=== PATIENT | male | born 2000 | race Hispanic/Latino ===

== ENCOUNTER 2019-08-03 16:07 | Emergency (ER) | payer OTHER ==
[~2019-08-03] VITALS: Ht 172.7 cm; Wt 63.6 kg
[2019-08-03] MEDS ORDERED: TYLENOL (16:13)
[2019-08-03] MEDS ORDERED: KETOROLAC 60 MG/2 ML VIAL (J1885) IM ONE (19:15)
[2019-08-03] MEDS ORDERED: predniSONE 50 MG TAB PO ONE (19:15)
[2019-08-03] MEDS ORDERED: CLINDAMYCIN 150 MG CAP PO ONE (19:15)
[2019-08-03] MEDS ORDERED: ACETAMINOPHEN 325 MG TAB PO ONE (19:15)
[2019-08-03] MEDS ORDERED: PRED10TA2 PO (19:20)
[2019-08-03] MEDS ORDERED: CLEO300C2 PO (19:20)
[2019-08-03 19:39] VITALS: BP 119/67
== END 2019-08-03 19:58 | disposition home or self-care (01) ==
LOC: M ED 16:07
DX: J03.90 Acute tonsillitis, unspecified (principal)
CPT/HCPCS: 96372; 99283; J1885

== ENCOUNTER 2019-08-26 14:00 | Inpatient (IN) | payer OTHER ==
[~2019-08-26] VITALS: Ht 172.7 cm; Wt 61.7 kg
[~2019-08-26 14:00] MED LIST: CLEO300C2 PO; PRED10TA2 PO; TYLENOL
[2019-08-26 15:22] LABS: BASO % 0.3 % (0.0-1.0); EOS % 0.4 % (0.0-3.0); HEMATOCRIT 44.8 % (42.0-52.0); LYMPH # 1.2 10^3/uL (1.5-5.0); LYMPH % 11.8 % (24.0-44.0); MEAN CORPUSCULAR HEMOGLOBIN 30.6 pg (27.0-33.0); MEAN CORPUSCULAR HGB CONC 33.5 g/dl (32.0-36.5); MEAN CORPUSCULAR VOLUME 91.4 fl (80.0-96.0); MONO # 0.9 10^3/uL (0.0-0.8); MONO % 8.6 % (0.0-5.0); NEUTROPHILS # 7.8 10^3/uL (1.5-8.5); NEUTROPHILS % 78.6 % (36.0-66.0); PLATELET COUNT, AUTOMATED 182 10^3/uL (150-450); WHITE BLOOD COUNT 9.9 10^3/uL (4.0-10.0)
[2019-08-26] MEDS ORDERED: dexameTHASONE 4 MG/ML 1ML VIAL (J1100) As Ordered ONE (15:38)
[2019-08-26] MEDS ORDERED: ISOVUE-370 76% 100ML VIAL (Q9967) As Ordered ONE (15:38)
[2019-08-26] MEDS ORDERED: dexameTHASONE 20 MG/5 ML VIAL (J1100) IV ONE (15:45)
--- NOTE | 2019-08-26 16:02 | REP ---
CT neck soft tissues: 08/26/2019. Indication: Dysphasia. Sore throat. Comparison: None. Technique: Axial images of the neck soft tissues were obtained following IV administration of 75 ml Isovue 370. Impression: There is a 1.6 x 2.6 x 1.3 cm focus of low attenuation within the right tonsillar pillar with moderate enlargement and mild hyperemia of the right greater than left palatine and nasal pharyngeal tonsils. Borderline prominent lymph nodes are present bilaterally which are likely reactive. The submandibular, parotid and thyroid glands are unremarkable. No significant ocular, intraorbital or intracranial abnormalities are detected. The airway is patent. No significant vascular abnormalities are detected. The visualized lungs are clear. Impression: Right tonsillar/peritonsillar abscess as described. The airway is patent. Electronically Signed by Marvin Haskins DO 08/26/2019 03:54 P
[2019-08-26] MEDS ORDERED: KETOROLAC 30 MG/ML VIAL (J1885) IV ONE (16:30)
[2019-08-26] MEDS ORDERED: NS 1,000 ML IV ONE (16:30)
[2019-08-26] MEDS ORDERED: CLINDAMYCIN 900 MG in IV 1 EA IV ONE (16:30)
[2019-08-26] MEDS: HEPARIN SOD (PORCINE) 5000 UNITS/ML VIAL SC SCH (18:00)
--- NOTE | 2019-08-26 18:06 | HPEPDOC ---
General Date of Admission 08/26/19 Date of Service: Aug 26, 2019 Chief Complaint The patient is a 19-year-old male admitted with a reason for visit of Sore Throat. Source: Patient Exam Limitations: No limitations Timing/Duration: 24 hours Severity: Mild History of Present Illness Patient is 19 years old male without significant past medical history presented to the hospital with difficulties in swallowing. Patient stated that he developed pain and difficulties in swallowing for past 24 hours. It's his second episode of swollen throat past 4 weeks. Around 4 weeks ago he was treated with antibiotics for pharyngitis. In emergency room patient was found to have no leukocytosis, no fever, CT neck showed right tonsillar/peritonsillar abscess as described. The airway is patent. ENT Dr. Coppola was contacted by phone, he recommended clindamycin and steroids. Patient denies fever, chills, nausea, vomiting, diarrhea or dysuria Home Medications No Active Prescriptions or Reported Meds Allergies Coded Allergies: No Known Allergies (Unverified , 08/03/19) Past Medical History Medical History No significant past medical history Family History His parents are healthy Social History * Smoker: Denies Alcohol: Denies Drugs: denies A-FIB/CHADSVASC A-FIB History Current/History of A-Fib/PAF?: No Current PO Anticoag Therapy: No Review of Systems Constitutional: Denies: Chills, Fever Eyes: Denies: Pain ENT: Reports: Sore Throat Skin: Denies: Rash Pulmonary: Denies: Dyspnea, Cough Cardiovascular: Denies: Chest Pain, Palpitations Gastrointestinal: Denies: Nausea, Vomiting Genitourinary: Denies: Dysuria, Frequency Hematologic: Denies: Bruising, Bleeding Excessively Endocrine: Denies: Polydipsia Musculoskeletal: Denies: Neck Pain, Back Pain Neurological: Denies: Weakness, Numbness Psych: Reports: Mood Normal Physical Examination General Exam: Positive: Alert Eye Exam: Positive: PERRLA, Conjunctiva & lids normal ENT Exam: Positive: Atraumatic, Pharyngeal Edema (tonsillar/peritonsillar edema) Neck Exam: Positive: Supple; Negative: JVD Chest Exam: Positive: Clear to auscultation Heart Exam: Positive: Rate Normal Telemetry: Positive: No significant arrhythmia Abdomen Exam: Positive: Normal bowel sounds Extremity Exam: Negative: Clubbing, Cyanosis Skin Exam: Positive: Nl turgor and temperature Neuro Exam: Positive: Normal Gait, Strength at 5/5 X4 ext Psych Exam: Positive: Mental status NL Vital Signs Vital Signs Date Time Temp Pulse Resp B/P (MAP) Pulse Ox O2 Delivery O2 Flow Rate FiO2 08/26/19 14:17 08/26/19 14:00 97.6 78 18 97 Room Air Laboratory Data Labs 24H Laboratory Tests 2 08/26/19 15:00: Immature Granulocyte % (Auto) 0.3, Neutrophils (%) (Auto) 78.6H, Lymphocytes (%) (Auto) 11.8L, Monocytes (%) (Auto) 8.6H, Eosinophils (%) (Auto) 0.4, Basophils (%) (Auto) 0.3, Neutrophils # (Auto) 7.8, Lymphocytes # (Auto) 1.2L, Monocytes # (Auto) 0.9H, Eosinophils # (Auto) 0.0, Basophils # (Auto) 0.0, Nucleated Red Blood Cells % (auto) 0.0 08/26/19 15:08: POC Glucose (Misc Panel) 85, POC Sodium (Misc Panel) 137, POC Potassium (Misc Panel) 4.1, POC Chloride (Misc Panel) 98, POC Total CO2 (Misc Panel) 28.0H, POC Blood Urea Nitrogen (Misc Panel 9, POC Ionized Calcium (Misc Panel) 4.7, POC Creatinine (Misc Panel) 1.0, POC Hematocrit (Misc Panel) 46.0 CBC/BMP Laboratory Tests 08/26/19 15:00 Assessment/Plan Patient is 19 years old male without significant past medical history presented to the hospital with difficulties in swallowing. Patient stated that he developed pain and difficulties in swallowing for past 24 hours. It's his second episode of swollen throat past 4 weeks. Around 4 weeks ago he was treated with antibiotics for pharyngitis. In emergency room patient was found to have no leukocytosis, no fever, CT neck showed right tonsillar/peritonsillar abscess as described. The airway is patent. ENT Dr. Coppola was contacted by phone, he recommended clindamycin and steroids Problems (1) Acute tonsillitis Status: Acute Problem Text: Nasopharynx swab for streptococcus Respiratory panel Clindamycin IV Dexamethasone IV Appreciate/agree with ENT consult Monitor vital signs Plan / VTE VTE Prophylaxis Ordered?: Yes GARRETT URIARTE DO Aug 26, 2019 18:06
[2019-08-26 19:05] VITALS: BP 105/67
[2019-08-26] MEDS: NS 1,000 ML IV SCH (20:11)
[2019-08-27] MEDS ORDERED: dexameTHASONE 20 MG/5 ML VIAL (J1100) IV SCH
[2019-08-27] MEDS ORDERED: dexameTHASONE 4 MG/ML 1ML VIAL (J1100) IV SCH (00:08)
[2019-08-27] MEDS: CLINDAMYCIN 900 MG in IV 1 EA IV SCH ×3 (00:35→17:09)
[2019-08-27] MEDS: dexameTHASONE 4 MG/ML 1ML VIAL (J1100) IV SCH ×4 (00:35→23:34)
[2019-08-27] MEDS: NS 1,000 ML IV SCH ×3 (04:56→23:34)
[2019-08-27] MEDS: HEPARIN SOD (PORCINE) 5000 UNITS/ML VIAL SC SCH ×2 (05:18→17:19)
[2019-08-27 05:34] VITALS: BP 108/67
[2019-08-27 06:30] LABS: HEMATOCRIT 41.4 % (42.0-52.0); HEMOGLOBIN 13.6 g/dl (13.5-17.5); MEAN CORPUSCULAR HEMOGLOBIN 29.6 pg (27.0-33.0); MEAN CORPUSCULAR HGB CONC 32.9 g/dl (32.0-36.5); PLATELET COUNT, AUTOMATED 209 10^3/uL (150-450); WHITE BLOOD COUNT 11.4 10^3/uL (4.0-10.0)
[2019-08-27 06:57] LABS: BLOOD UREA NITROGEN 12 MG/DL (7-18); CALCIUM LEVEL 8.8 MG/DL (8.5-10.1); CARBON DIOXIDE LEVEL 23 MEQ/L (21-32); CHLORIDE LEVEL 108 MEQ/L (98-107); CREATININE FOR GFR 0.81 MG/DL (0.70-1.30); GLOMERULAR FILTRATION RATE > 60.0 (>60); GLUCOSE, FASTING 141 MG/DL (70-100); MAGNESIUM LEVEL 2.2 MG/DL (1.8-2.4); POTASSIUM SERUM 4.2 MEQ/L (3.5-5.1); SODIUM LEVEL 138 MEQ/L (136-145)
[2019-08-27 15:16] VITALS: BP 108/60
--- NOTE | 2019-08-27 17:04 | IPNPDOC ---
Text Note Date of Service The patient was seen on 08/27/19. NOTE Subjective: patient stated that his swallowing much better today, he doesn't have any problem with breathing. Patient denies fever, chills, nausea, vomiting, chest pain, diarrhea or dysuria Objective: VITAL SIGNS: Please see below. GENERAL APPEARANCE: Well-nourished, well-developed, not in apparent distress HEENT: Normocephalic, atraumatic. Mucous members moist and pink, peritonsillar swelling, pharyngeal erythema CARDIOVASCULAR: Regular rate and rhythm. No murmurs, rubs or gallops. Radial pulses are intact. There is no lower extremity edema LUNGS: Clear to auscultation ABDOMEN: Abdomen is soft and nontender. MUSCULOSKELETAL: Range of motion is intact in all 4 extremities NEUROLOGICAL: Cranial nerves II-12 are grossly intact. Speech is not dysarthric Assessment/Plan Patient is 19 years old male without significant past medical history presented to the hospital with difficulties in swallowing. Patient stated that he developed pain and difficulties in swallowing for past 24 hours. It's his second episode of swollen throat past 4 weeks. Around 4 weeks ago he was treated with antibiotics for pharyngitis. In emergency room patient was found to have no leukocytosis, no fever, CT neck showed right tonsillar/peritonsillar abscess as described. The airway is patent. ENT Dr. Coppola was contacted by phone, he recommended clindamycin and steroids Problems Acute tonsillitis patient stated that his swallowing much better today Nasopharynx swab for streptococcus negative Respiratory panel negative Clindamycin IV Dexamethasone IV Appreciate/agree with ENT consult Monitor vital signs VS,Mio, I+O VS, Mio, I+O Laboratory Tests 08/27/19 06:07 Vital Signs Date Time Temp Pulse Resp B/P (MAP) Pulse Ox O2 Delivery O2 Flow Rate FiO2 08/27/19 15:16 97.8 69 18 108/60 (76) 98 08/27/19 05:34 Room Air I&O- Last 24 Hours up to 6 AM 08/27/19 06:00 Intake Total 500 ml Output Total 0 ml Balance 500 ml GARRETT URIARTE DO Aug 27, 2019 17:04
--- NOTE | 2019-08-27 20:16 | CR ---
DATE OF CONSULTATION: 08/27/2019 REFERRING PHYSICIAN: Hospitalist service. CHIEF COMPLAINT: Right peritonsillar abscess. HISTORY OF PRESENT ILLNESS: This healthy 19-year-old man presented to the emergency department on August 26, 2019 complaining of right-sided sore throat for the past two days. He had a similar episode occur about a month ago in which he was treated with oral antiobiotic that he responded to at that time. At this time, he represented to the [facility] emergency department for evaluation of recurrent right-sided sore throat. CT scan of the neck showed right paratonsillar abscess measuring 1.6 x 2.6 x 1.3 cm, patent airway, mild cervical lymphadenopathy. Patient was then admitted to the hospital for IV clindamycin and Decadron treatment. Patient has been tolerating oral diet without difficulty. He has no acute respiratory distress. PAST MEDICAL HISTORY: Remarkable for recurrent tonsillitis prior to July 2019. The patient has no known bleeding disorder. Detailed in history of present illness. PAST SURGICAL HISTORY: No head and neck surgery done. ALLERGIES: No known drug allergies. SOCIAL HISTORY: Nonsmoker, non alcohol user. REVIEW OF SYSTEMS: Noncontributory. PHYSICAL EXAMINATION: On examination the patient appeared to be in no acute distress. Pleasant. Afebrile. No stridor. Ear: Normal pinna. Nose: Normal external nasal anatomy. No hypertrophy of the nasal turbinates. Oral cavity: No trismus. Moist oral mucosa. Tongue mobile. Floor of the mouth nonelevated. Erythema mild of the right soft palate. Right palatine tonsil mildly enlarged. No exudate on the surface of the tonsils. Uvula midline. Posterior pharyngeal wall visualized and free of mucosal lesions. Neck: Trachea midline. No thyromegaly. Lymph nodes: Mild enlargement of jugular digastric lymph node. LABS: From August 27, 2019 revealed white count of 11.4, hemoglobin 13.6, platelet 209. CBC from August 26, 2019 showed normal white count, hemoglobin and platelets with a neutrophil of 78%. Electrolytes: Normal sodium and potassium. Fasting glucose 141. Microbiology: Respiratory virus panel negative. Group A Streptococcus culture negative. Blood culture pending. IMPRESSION: 19-year-old male with right peritonsillar abscess. PLAN: Patient is responding well to IV clindamycin and IV Decadron for the right peritonsillar abscess. The episodes seems to have occurred within a span of one month. Likely has had two bouts of peritonsillar abscess from the right tonsillar region. As such he may benefit from having tonsillectomy. I would suggest the patient at least have 24 hours of IV antibiotic and then switch over to oral antibiotic. If his condition continues to improve, he is to followup with my office in 4-6 weeks time to discuss further management including tonsillectomy at that as well.
[2019-08-27 22:00] VITALS: BP 108/61
[2019-08-28] MEDS: CLINDAMYCIN 900 MG in IV 1 EA IV SCH ×3 (01:12→16:24)
[2019-08-28] MEDS: HEPARIN SOD (PORCINE) 5000 UNITS/ML VIAL SC SCH (05:25)
[2019-08-28 06:00] VITALS: BP 121/53
[2019-08-28 08:15] LABS: HEMATOCRIT 38.5 % (42.0-52.0); HEMOGLOBIN 12.7 g/dl (13.5-17.5); MEAN CORPUSCULAR HEMOGLOBIN 29.5 pg (27.0-33.0); MEAN CORPUSCULAR VOLUME 89.5 fl (80.0-96.0); PLATELET COUNT, AUTOMATED 190 10^3/uL (150-450); WHITE BLOOD COUNT 14.9 10^3/uL (4.0-10.0)
[2019-08-28 08:35] LABS: BLOOD UREA NITROGEN 7 MG/DL (7-18); CALCIUM LEVEL 8.4 MG/DL (8.5-10.1); CARBON DIOXIDE LEVEL 24 MEQ/L (21-32); CHLORIDE LEVEL 110 MEQ/L (98-107); CREATININE FOR GFR 0.72 MG/DL (0.70-1.30); GLOMERULAR FILTRATION RATE > 60.0 (>60); GLUCOSE, FASTING 134 MG/DL (70-100); POTASSIUM SERUM 4.1 MEQ/L (3.5-5.1); SODIUM LEVEL 140 MEQ/L (136-145)
[2019-08-28] MEDS: NS 1,000 ML IV SCH ×2 (09:18→15:40)
[2019-08-28] MEDS: dexameTHASONE 4 MG/ML 1ML VIAL (J1100) IV SCH ×2 (09:18→15:40)
[2019-08-28 14:16] VITALS: BP 116/56
[2019-08-28] MEDS ORDERED: CLEO300C2 PO ×3 (15:30→15:50)
[2019-08-28] MEDS ORDERED: MEDR4TAB PO ×2 (15:30→15:50)
--- NOTE | 2019-08-28 18:07 | DS.PDOC ---
Discharge Summary General Date of Admission Aug 26, 2019 at 17:50 Date of Discharge 08/28/19 Discharge Summary PROCEDURES PERFORMED DURING STAY: [None]. ADMITTING DIAGNOSES: Acute tonsillitis DISCHARGE DIAGNOSES: Acute tonsillitis COMPLICATIONS/CHIEF COMPLAINT: Acute Tonsillitis. HISTORY OF PRESENT ILLNESS: This healthy 19-year-old man presented to the emergency department on August 26, 2019 complaining of right-sided sore throat for the past two days. He had a similar episode occur about a month ago in which he was treated with oral antiobiotic that he responded to at that time. At this time, he represented to the [facility] emergency department for evaluation of recurrent right-sided sore throat. CT scan of the neck showed right paratonsillar abscess measuring 1.6 x 2.6 x 1.3 cm, patent airway, mild cervical lymphadenopathy. Patient was then admitted to the hospital for IV clindamycin and Decadron treatment. Patient has been tolerating oral diet without difficulty. He has no acute respiratory distress. HOSPITAL COURSE: Patient received antibiotic therapy and steroids during hospital stay DISCHARGE MEDICATIONS: Please see below. ALLERGIES: Please see below. PHYSICAL EXAMINATION ON DISCHARGE: VITAL SIGNS: Please see below. On examination the patient appeared to be in no acute distress. Pleasant. Afebrile. No stridor. Ear: Normal pinna. Nose: Normal external nasal anatomy. No hypertrophy of the nasal turbinates. Oral cavity: No trismus. Moist oral mucosa. Tongue mobile. Floor of the mouth nonelevated. Erythema mild of the right soft palate. Right palatine tonsil mildly enlarged. No exudate on the surface of the tonsils. Uvula midline. Posterior pharyngeal wall visualized and free of mucosal lesions. Neck: Trachea midline. No thyromegaly. Lymph nodes: Mild enlargement of jugular digastric lymph node. LABORATORY DATA: Please see below. IMAGING:CT scan of the neck showed right para patient received treatment with steroids and antibiotic therapy during hospital stay tonsillar abscess measuring 1.6 x 2.6 x 1.3 cm, patent airway, mild cervical lymphadenopathy. PROGNOSIS: Favorable ACTIVITY: As tolerated DIET: Regular DISPOSITION: 01 Home, Self-Care. DISCHARGE INSTRUCTIONS: Follow-up with ENT ITEMS TO FOLLOWUP ON ON OUTPATIENT: Continue taking antibiotics and steroids DISCHARGE CONDITION: Stable. TIME SPENT ON DISCHARGE: Greater than 20 minutes. Vital Signs/I&Os Vital Signs Date Time Temp Pulse Resp B/P (MAP) Pulse Ox O2 Delivery O2 Flow Rate FiO2 08/28/19 14:16 98.1 75 16 116/56 (76) 98 Room Air I&O- Last 24 Hours up to 6 AM 08/28/19 06:00 Intake Total 2980 ml Output Total 0 ml Balance 2980 ml Laboratory Data Labs 24H Laboratory Tests 2 08/28/19 07:50: Nucleated Red Blood Cells % (auto) 0.0, Anion Gap 6L, Glomerular Filtration Rate > 60.0, Calcium Level 8.4L CBC/BMP Laboratory Tests 08/28/19 07:50 Microbiology Microbiology 08/26/19 Blood Culture - Preliminary, Resulted No growth after 24 hours . All specim... 08/26/19 Respiratory Virus Panel (PCR) ([facility]) - Final, Complete 08/26/19 Group A Streptococcus Screen ([facility]) - Final, Complete 08/26/19 Group A Streptococcus Screen ([facility]) - Final, Complete Discharge Medications Scheduled Clindamycin Hcl (Cleocin HCl) 300 Mg Capsule, 300 MG PO TID for tonsillitis Methylprednisolone (Medrol) 4 Mg Tablet, 4 MG PO ASDIRECTED for tonsillitis Allergies Coded Allergies: No Known Allergies (Unverified , 08/03/19) GARRETT URIARTE DO Aug 28, 2019 18:07
== END 2019-08-28 17:30 | disposition home or self-care (01) | DRG 153 ==
LOC: M ED 14:00 → M ED INP 17:50 → ENRESERV 18:03 → M MS5PR 19:05
PROVIDERS: ADMIT Internal Medicine; ATTEND Internal Medicine
DX: J03.90 Acute tonsillitis, unspecified (principal)

== ENCOUNTER 2019-09-15 09:33 | Emergency (ER) | payer OTHER ==
[~2019-09-15] VITALS: Ht 172.7 cm; Wt 64.8 kg
[~2019-09-15 09:33] MED LIST changes: +MEDR4TAB PO
[2019-09-15] MEDS ORDERED: AMPICILLIN SOD/SULBACTAM SOD 3 GM in D5W MINI-BAG PLUS 100 ML IV ONE (11:30)
[2019-09-15] MEDS ORDERED: dexameTHASONE 20 MG/5 ML VIAL (J1100) IV ONE (11:30)
[2019-09-15] MEDS ORDERED: NS 1,000 ML IV ONE (11:30)
[2019-09-15] MEDS ORDERED: AUGM875T28 PO (11:45)
[2019-09-15] MEDS ORDERED: IBUP-1022 PO (11:46)
[2019-09-15 12:07] VITALS: BP 119/63
== END 2019-09-15 12:08 | disposition left against medical advice (07) ==
LOC: M ED 09:33
DX: J03.91 Acute recurrent tonsillitis, unspecified (principal)

== ENCOUNTER 2022-01-10 11:26 | Emergency (ER) | payer OTHER ==
[~2022-01-10] VITALS: Ht 172.7 cm; Wt 67.3 kg
[2022-01-10 11:26] VITALS: BP 129/80
[~2022-01-10 11:26] MED LIST changes: +AUGM875T28 PO; +IBUP-1022 PO
[2022-01-10] MEDS ORDERED: ACETAMINOPHEN 325 MG TAB PO ONE (15:30)
== END 2022-01-10 16:27 | disposition home or self-care (01) ==
LOC: M ED 11:26
DX: U07.1 COVID-19 (principal); R50.9 Fever, unspecified; R51.9 Headache, unspecified

== ENCOUNTER → 2022-05-31 | Outpatient (REF) | payer OTHER ==
[2022-05-31 18:37] LABS: C REACTIVE PROTEIN QUANTITATIV < 0.30 MG/DL (0.00-0.30); NT-PRO BNP 14 PG/ML (<125)
[2022-05-31 19:20] LABS: TOTAL 25(OH) VITAMIN D 31.5 NG/ML (30.0-100.0)
== END ==
LOC: M LAB REF 16:54
PROVIDERS: ATTEND Internal Medicine Critical Care Medicine
DX: R07.9 Chest pain, unspecified (principal)